=== PATIENT | female | born 1985 | race Caucasian/White ===

== ENCOUNTER 2017-04-25 21:07 | Emergency (ER) | payer MEDICAID ==
[~2017-04-25] VITALS: Wt 67.4 kg
[~2017-04-25 21:07] MED LIST: PREN1TAB62 PO
[2017-04-25] MEDS ORDERED: AMOX1TAB10 PO (23:10)
[2017-04-25] MEDS ORDERED: NAPR-260 PO (23:10)
--- NOTE | 2017-04-25 23:30 | ERD ---
ER Documentation Chief Complaint Chief Complaint right earache/bleeding x 1 hour HPI 31-year-old female complaining of bleeding to the right ear 1 hour. Patient has mild ear pain and noticed some bleeding earlier today. Patient has had recent URI symptoms. No fevers. Denies cough. Denies headaches. Denies fever. Has not taken medications for symptoms. NKDA. Denies medical problems. surgical history: Denies. ROS All systems reviewed and are negative except as per history of present illness. Medications Home Meds Active Scripts Naproxen* (Naprosyn*) 500 Mg Tablet, 500 MG PO BID Y for PAIN AND/OR INFLAMMATION, #30 TAB Prov:RANCHO HERNANDEZ PA-C 04/25/17 Amoxicillin/Potassium Clav (Amox-Clav 875-125 mg Tablet) 875-125 mg Tab, 1 TAB PO BID for 7 Days, #14 TAB Prov:RANCHO HERNANDEZ PA-C 04/25/17 Reported Medications Vit-Iron Fumarate-FA ( Vitamin Tablet) 1 Each Tablet, 1 TAB PO DAILY, TAB 04/07/16 Allergies Allergies: Coded Allergies: No Known Allergy (Unverified , 04/25/17) PMhx/Soc Medical and Surgical Hx: pt denies Medical Hx, pt denies Surgical Hx Hx Alcohol Use: No Hx Substance Use: No Hx Tobacco Use: No Smoking Status: Never smoker Physical Exam Vitals Vital Signs Date Time Temp Pulse Resp B/P Pulse Ox O2 Delivery O2 Flow Rate FiO2 04/25/17 21:09 98.6 89 20 150/96 100 Physical Exam GENERAL: The patient is well-appearing, well-nourished, in no acute distress HEENT: Atraumatic. Conjunctivae are pink. Pupils equal, round, and reactive to light. There is no scleral icterus. Tympanic membranes clear bilaterally. Oropharynx clear. No nystagmus or photophobia. Bleeding to right Ear with no tragal tenderness. No mastoid tenderness. No foreign bodies. NECK: C-spine is soft and supple. There is no meningismus. There is no cervical lymphadenopathy. CHEST: Clear to auscultation bilaterally. There are no rales, wheezes or rhonchi. HEART: Regular rate and rhythm. No murmurs, clicks, rubs or gallops. No S3 or S4. Procedures/MDM MDM: 31-year-old female complaining of bleeding is her right ear. Patient appears to have perforation of the TM with underlying infection. I will treat with antibiotics. A low suspicion for mastoiditis. I have low suspicion for retained foreign body. I have low suspicion for otitis externa. Patient will be given antibiotics and pain medication. I recommended patient to refrain from submerging her head underwater. Departure Diagnosis: Primary Impression: Right ear pain Condition: Stable Patient Instructions: Understanding Middle Ear Infections Referrals: [facility] YOU HAVE RECEIVED A MEDICAL SCREENING EXAM AND THE RESULTS INDICATE THAT YOU DO NOT HAVE A CONDITION THAT REQUIRES URGENT TREATMENT IN THE EMERGENCY DEPARTMENT. FURTHER EVALUATION AND TREATMENT OF YOUR CONDITION CAN WAIT UNTIL YOU ARE SEEN IN YOUR DOCTORS OFFICE WITHIN THE NEXT 1-2 DAYS. IT IS YOUR RESPONSIBILITY TO MAKE AN APPOINTMENT FOR FOLOW-UP CARE. IF YOU HAVE A PRIMARY DOCTOR --you should call your primary doctor and schedule an appointment IF YOU DO NOT HAVE A PRIMARY DOCTOR YOU CAN CALL OUR PHYSICIAN REFERRAL HOTLINE AT IF YOU CAN NOT AFFORD TO SEE A PHYSICIAN YOU CAN CHOSE FROM THE FOLLOWING [facility] [address] [facility] [address] [facility] [facility] [address] [facility] [facility] [address] [facility] [address] [facility]. [facility]. [address] Additional Instructions: FOLLOW UP WITH YOUR PRIMARY CARE PHYSICIAN TOMORROW.Return to this facility if you are not improving as expected. RANCHO HERNANDEZ PA-C Apr 25, 2017 23:30
== END 2017-04-25 23:55 | disposition home or self-care (01) ==
LOC: FTE 21:07
DX: H92.01 Otalgia, right ear (principal)
CPT/HCPCS: 99283